=== PATIENT | male | born 1975 | race Caucasian/White ===

== ENCOUNTER 2019-10-28 12:27 | Observation (INO) | payer MEDICARE, BC, MEDICAID ==
[~2019-10-28] VITALS: Ht 180.3 cm; Wt 66.5 kg
[2019-10-28] MEDS ORDERED: TYLENOL EXTRA500 M2 PO (12:43)
[2019-10-28] MEDS ORDERED: FLONASE ALLERG9.9 ML NS (12:45)
[2019-10-28] MEDS ORDERED: MYCOPHENOLIC A360 MG PO (12:46)
[2019-10-28] MEDS ORDERED: ENVARSUS XR1 MG PO (12:47)
[2019-10-28] MEDS ORDERED: ZESTRIL5 M1 PO (12:47)
[2019-10-28] MEDS ORDERED: ENVARSUS XR0.75 MG PO (12:47)
[2019-10-28] MEDS ORDERED: SODIUM BIC650 MG/TAB PO (12:48)
[2019-10-28 13:07] LABS: HEMATOCRIT 30.4 % (42.0-52.0); HEMOGLOBIN 9.8 g/dL (13.5-18.0); MEAN CELL VOLUME 88 fl (78-100); MEAN CORPUSCULAR HEMOGLOBIN 28 pg (27-31); MEAN CORPUSCULAR HGB CONC 32 g/dL (33-37); MEAN PLATELET VOLUME 10.5 fl (7.4-10.4); PLATELET COUNT 224 K/mm3 (130-400); RED BLOOD COUNT 3.45 M/mm3 (4.20-5.60); RED CELL DISTRIBUTION WIDTH 13.9 % (11.5-14.5); WHITE BLOOD COUNT 4.3 K/mm3 (4.8-10.8)
[2019-10-28] MEDS ORDERED: CALCIUM PO (13:09)
[2019-10-28] MEDS ORDERED: SLOW MAG PO (13:09)
[2019-10-28 13:14] LABS: POTASSIUM 3.9 mmol/L (3.5-5.1)
[2019-10-28 13:15] LABS: CALCIUM 8.9 mg/dL (8.3-10.5)
[2019-10-28 13:18] LABS: LYMPHOCYTE 24 % (20-51); MONOCYTE 12 % (3-10); NEUTROPHILS 63 % (42-75)
[2019-10-28 14:31] LABS: URINE APPEARANCE CLEAR; URINE BILIRUBIN NEGATIVE (NEGATIVE); URINE BLOOD NEGATIVE (NEGATIVE); URINE COLOR YELLOW; URINE GLUCOSE NEGATIVE (NEGATIVE); URINE KETONE NEGATIVE (NEGATIVE); URINE LEUKOCYTE ESTERASE NEGATIVE (NEGATIVE); URINE MUCUS PRESENT (NOT PRESENT); URINE NITRATE NEGATIVE (NEGATIVE); URINE PROTEIN(semi-quant) 2+ mg/dL (NEGATIVE); URINE UROBILINOGEN NORMAL (NORMAL)
[2019-10-28 21:54] VITALS: BP 110/75
[2019-10-28 22:35] VITALS: BP 100/60
[2019-10-29 00:10] LABS: CALCIUM 7.7 mg/dL (8.3-10.5)
[2019-10-29 02:10] VITALS: BP 99/57
[2019-10-29 05:46] VITALS: BP 95/56
[2019-10-29 07:19] LABS: POTASSIUM 3.6 mmol/L (3.5-5.1)
[2019-10-29 07:21] LABS: CALCIUM 7.6 mg/dL (8.3-10.5)
[2019-10-29 07:28] LABS: HEMATOCRIT 24.1 % (42.0-52.0); MEAN CELL VOLUME 89 fl (78-100); MEAN CORPUSCULAR HEMOGLOBIN 29 pg (27-31); MEAN CORPUSCULAR HGB CONC 32 g/dL (33-37); PLATELET COUNT 156 K/mm3 (130-400); RED BLOOD COUNT 2.72 M/mm3 (4.20-5.60); RED CELL DISTRIBUTION WIDTH 13.7 % (11.5-14.5); WHITE BLOOD COUNT 2.6 K/mm3 (4.8-10.8)
[2019-10-29 07:36] LABS: HEMOGLOBIN 7.8 g/dL (13.5-18.0)
[2019-10-29 07:54] LABS: LYMPHOCYTE 31 % (20-51); MONOCYTE 14 % (3-10); NEUTROPHILS 55 % (42-75)
[2019-10-29 09:43] VITALS: BP 95/55
[2019-10-29 13:04] LABS: PROTHROMBIN TIME 9.9 SECONDS (9.0-12.0)
[2019-10-29 14:12] VITALS: BP 108/72
[2019-10-29 15:37] LABS: HEMATOCRIT 25.5 % (42.0-52.0); HEMOGLOBIN 8.2 g/dL (13.5-18.0); MEAN CELL VOLUME 89 fl (78-100); MEAN CORPUSCULAR HEMOGLOBIN 29 pg (27-31); MEAN CORPUSCULAR HGB CONC 32 g/dL (33-37); MEAN PLATELET VOLUME 11.9 fl (7.4-10.4); PLATELET COUNT 182 K/mm3 (130-400); RED BLOOD COUNT 2.86 M/mm3 (4.20-5.60); RED CELL DISTRIBUTION WIDTH 13.8 % (11.5-14.5)
[2019-10-29 15:38] LABS: POTASSIUM 3.7 mmol/L (3.5-5.1)
[2019-10-29 15:47] LABS: BAND 1 % (0-10); LYMPHOCYTE 30 % (20-51); MONOCYTE 15 % (3-10); NEUTROPHILS 50 % (42-75)
[2019-10-29 17:10] VITALS: BP 120/77
[2019-10-29 21:49] VITALS: BP 108/74
[2019-10-30 02:23] VITALS: BP 98/57
[2019-10-30 05:52] VITALS: BP 112/78
[2019-10-30 06:22] LABS: MEAN CELL VOLUME 88 fl (78-100); MEAN CORPUSCULAR HEMOGLOBIN 29 pg (27-31); MEAN CORPUSCULAR HGB CONC 33 g/dL (33-37); MEAN PLATELET VOLUME 11.1 fl (7.4-10.4); PLATELET COUNT 163 K/mm3 (130-400); RED BLOOD COUNT 2.57 M/mm3 (4.20-5.60); RED CELL DISTRIBUTION WIDTH 13.4 % (11.5-14.5)
[2019-10-30 06:43] LABS: POTASSIUM 3.3 mmol/L (3.5-5.1)
[2019-10-30 06:44] LABS: CALCIUM 7.5 mg/dL (8.3-10.5)
[2019-10-30 06:51] LABS: MAGNESIUM 1.91 mg/dL (1.60-2.60)
[2019-10-30 06:57] LABS: HEMATOCRIT 22.6 % (42.0-52.0); HEMOGLOBIN 7.5 g/dL (13.5-18.0); WHITE BLOOD COUNT 1.5 K/mm3 (4.8-10.8)
[2019-10-30 07:33] LABS: BAND 3 % (0-10); LYMPHOCYTE 50 % (20-51); MONOCYTE 11 % (3-10); NEUTROPHILS 31 % (42-75)
[2019-10-30 07:34] LABS: OVALOCYTES 1+; SCHISTOCYTES 1+; TEAR DROP CELLS 1+
[2019-10-30 09:47] VITALS: BP 109/70
[2019-10-30 14:11] VITALS: BP 133/90
[2019-10-30 17:04] VITALS: BP 128/78
== END 2019-10-30 15:05 | disposition short-term general hospital (02) ==
LOC: ED 12:27 → MED/SURG 21:47
PROVIDERS: Nurse Practitioner Primary Care; ADMIT Family Medicine
DX: N17.9 Acute kidney failure, unspecified (principal); N17.0 Acute kidney failure with tubular necrosis; E86.9 Volume depletion, unspecified; E87.2 Acidosis; J11.1 Influenza due to unidentified influenza virus with other respiratory manifestations; E83.42 Hypomagnesemia; R11.2 Nausea with vomiting, unspecified; R19.7 Diarrhea, unspecified; D72.819 Decreased white blood cell count, unspecified; Z94.0 Kidney transplant status
CPT/HCPCS: G0378; J3475; J7030; J7070

== ENCOUNTER 2019-10-30 15:05 | Inpatient (IN) | payer MEDICARE, BC, MEDICAID ==
[~2019-10-30] VITALS: Ht 180.3 cm; Wt 65.6 kg
[~2019-10-30 15:05] MED LIST: CALCIUM PO; ENVARSUS XR0.75 MG PO; ENVARSUS XR1 MG PO; FLONASE ALLERG9.9 ML NS; MYCOPHENOLIC A360 MG PO; SLOW MAG PO; SODIUM BIC650 MG/TAB PO; TYLENOL EXTRA500 M2 PO; ZESTRIL5 M1 PO
[2019-10-30 15:32] VITALS: BP 110/75
[2019-10-30 16:27] VITALS: BP 128/78
[2019-10-30 17:29] VITALS: BP 134/91
[2019-10-30 17:30] VITALS: BP 134/91
[2019-10-30 22:00] VITALS: BP 120/78
[2019-10-31 02:17] VITALS: BP 113/72
[2019-10-31 06:04] VITALS: BP 128/83
[2019-10-31 06:56] LABS: POTASSIUM 3.8 mmol/L (3.5-5.1)
[2019-10-31 06:57] LABS: CALCIUM 7.5 mg/dL (8.3-10.5)
[2019-10-31 07:04] LABS: MAGNESIUM 1.41 mg/dL (1.60-2.60)
[2019-10-31 07:41] LABS: MEAN CELL VOLUME 90 fl (78-100); MEAN CORPUSCULAR HEMOGLOBIN 28 pg (27-31); MEAN CORPUSCULAR HGB CONC 31 g/dL (33-37); PLATELET COUNT 167 K/mm3 (130-400); RED BLOOD COUNT 2.66 M/mm3 (4.20-5.60); RED CELL DISTRIBUTION WIDTH 13.4 % (11.5-14.5); WHITE BLOOD COUNT 2.2 K/mm3 (4.8-10.8)
[2019-10-31 08:12] LABS: HEMATOCRIT 23.8 % (42.0-52.0); HEMOGLOBIN 7.4 g/dL (13.5-18.0)
[2019-10-31 08:13] LABS: HYPOCHROMIA 1+; LYMPHOCYTE 38 % (20-51); MONOCYTE 16 % (3-10); NEUTROPHILS 42 % (42-75)
[2019-10-31 09:50] VITALS: BP 137/86
[2019-10-31 14:20] VITALS: BP 136/92
[2019-10-31 18:10] VITALS: BP 135/95
[2019-10-31 21:38] VITALS: BP 113/77
[2019-11-01 02:25] VITALS: BP 129/91
[2019-11-01 06:23] VITALS: BP 119/80
[2019-11-01 07:13] LABS: HEMATOCRIT 25.5 % (42.0-52.0); MEAN CELL VOLUME 92 fl (78-100); MEAN CORPUSCULAR HEMOGLOBIN 29 pg (27-31); MEAN CORPUSCULAR HGB CONC 31 g/dL (33-37); MEAN PLATELET VOLUME 10.6 fl (7.4-10.4); PLATELET COUNT 200 K/mm3 (130-400); RED BLOOD COUNT 2.78 M/mm3 (4.20-5.60); RED CELL DISTRIBUTION WIDTH 13.5 % (11.5-14.5); WHITE BLOOD COUNT 2.6 K/mm3 (4.8-10.8)
[2019-11-01 07:17] LABS: POTASSIUM 4.5 mmol/L (3.5-5.1)
[2019-11-01 07:18] LABS: CALCIUM 7.6 mg/dL (8.3-10.5)
[2019-11-01 08:06] LABS: HYPOCHROMIA 1+; LYMPHOCYTE 42 % (20-51); MONOCYTE 11 % (3-10); NEUTROPHILS 45 % (42-75)
[2019-11-01 09:42] VITALS: BP 132/92
[2019-11-01 12:53] VITALS: BP 130/92
== END 2019-11-01 13:56 | disposition home or self-care (01) | DRG 683 ==
LOC: MED/SURG 15:05
PROVIDERS: Physician Assistant; ADMIT Nurse Practitioner Family
DX: N17.0 Acute kidney failure with tubular necrosis (principal); E87.2 Acidosis; Z94.0 Kidney transplant status; N17.9 Acute kidney failure, unspecified; J10.1 Influenza due to other identified influenza virus with other respiratory manifestations; E83.42 Hypomagnesemia; D72.819 Decreased white blood cell count, unspecified
CPT/HCPCS: J1650; J3475; J7030

== ENCOUNTER → 2022-11-04 | Outpatient (CLI) | payer MEDICARE, MEDICAID ==
[2022-11-04 07:36] LABS: BASO # 0.03 K/mm3 (0.02-0.10); EOS # 0.13 K/mm3 (0.04-0.40); EOS % 2.7 % (0.0-4.0); HEMATOCRIT 32.4 % (42.0-52.0); HEMOGLOBIN 10.8 g/dL (13.5-18.0); LYMPH# 1.39 K/mm3 (1.50-4.00); MEAN CELL VOLUME 90 fl (78-100); MEAN CORPUSCULAR HEMOGLOBIN 30 pg (27-31); MEAN CORPUSCULAR HGB CONC 33 g/dL (33-37); MEAN PLATELET VOLUME 10.5 fl (7.4-10.4); MONO # 0.32 K/mm3 (0.20-0.80); PLATELET COUNT 271 K/mm3 (130-400); RED BLOOD COUNT 3.59 M/mm3 (4.20-5.60); RED CELL DISTRIBUTION WIDTH 13.3 % (11.5-14.5); WHITE BLOOD COUNT 4.8 K/mm3 (4.8-10.8)
[2022-11-04 07:43] LABS: POTASSIUM 4.5 mmol/L (3.5-5.1)
[2022-11-04 07:44] LABS: ALBUMIN 4.8 g/dL (3.5-5.0)
[2022-11-04 07:45] LABS: CALCIUM 9.2 mg/dL (8.3-10.5)
[2022-11-04 07:46] LABS: TOTAL PROTEIN 7.8 g/dL (6.4-8.3)
[2022-11-04 07:48] LABS: TOTAL BILIRUBIN 0.4 mg/dL (0.2-1.2)
[2022-11-04 07:53] LABS: MAGNESIUM 1.22 mg/dL (1.60-2.60)
[2022-11-04 08:02] LABS: URINE COLOR LT YELLOW
[2022-11-04 08:03] LABS: URINE APPEARANCE CLEAR; URINE BILIRUBIN NEGATIVE (NEGATIVE); URINE BLOOD TRACE (NEGATIVE); URINE GLUCOSE NEGATIVE (NEGATIVE); URINE KETONE NEGATIVE (NEGATIVE); URINE LEUKOCYTE ESTERASE NEGATIVE (NEGATIVE); URINE NITRATE NEGATIVE (NEGATIVE); URINE PROTEIN(semi-quant) 2+ (NEGATIVE); URINE UROBILINOGEN NORMAL (NORMAL); URINE WBC 0-1 /hpf (0-3)
[2022-11-05 01:23] LABS: TACROLIMUS (PROGRAF) 4.9 ng/mL (5.0-15.0)
[2022-11-08 13:02] LABS: BK VIRUS, DNA LOG, PLASMA Not Detected (()); BK VIRUS, QUANT PCR, PLASMA Not Detected (())
== END ==
LOC: LAB 07:16
PROVIDERS: Internal Medicine Nephrology
DX: Z94.0 Kidney transplant status (principal); Z79.899 Other long term (current) drug therapy

== ENCOUNTER → 2022-12-27 | Day surgery (SDC) | payer MEDICARE, MEDICAID | END | disposition home or self-care (01) | LOC: MSO 12-20 12:15 | DX: Z12.11 Encounter for screening for malignant neoplasm of colon (principal); T86.12 Kidney transplant failure; Z86.16 Personal history of COVID-19 | CPT/HCPCS: G0105; 00812; J2704; J7120 ==

== ENCOUNTER → 2022-12-31 | Outpatient (CLI) | payer MEDICARE, MEDICAID | LOC: VAS 07:41 → RAD 07:41 | DX: Z01.818 Encounter for other preprocedural examination (principal) ==

== ENCOUNTER → 2023-05-26 | Outpatient (CLI) | payer MEDICARE, MEDICAID ==
[2023-05-26 07:40] LABS: BASO # 0.04 K/mm3 (0.02-0.10); EOS # 0.14 K/mm3 (0.04-0.40); EOS % 2.6 % (0.0-4.0); HEMATOCRIT 29.6 % (42.0-52.0); HEMOGLOBIN 9.8 g/dL (13.5-18.0); LYMPH# 1.47 K/mm3 (1.50-4.00); MEAN CELL VOLUME 91 fl (78-100); MEAN CORPUSCULAR HEMOGLOBIN 30 pg (27-31); MEAN CORPUSCULAR HGB CONC 33 g/dL (33-37); MEAN PLATELET VOLUME 10.1 fl (7.4-10.4); MONO # 0.42 K/mm3 (0.20-0.80); NEU # 3.24 K/mm3 (1.40-6.50); PLATELET COUNT 306 K/mm3 (130-400); RED BLOOD COUNT 3.27 M/mm3 (4.20-5.60); RED CELL DISTRIBUTION WIDTH 12.7 % (11.5-14.5); WHITE BLOOD COUNT 5.4 K/mm3 (4.8-10.8)
[2023-05-26 07:48] LABS: ALBUMIN 4.2 g/dL (3.5-5.0)
[2023-05-26 07:49] LABS: CALCIUM 7.8 mg/dL (8.3-10.5)
[2023-05-26 07:50] LABS: TOTAL PROTEIN 6.9 g/dL (6.4-8.3)
[2023-05-26 07:52] LABS: TOTAL BILIRUBIN 0.3 mg/dL (0.2-1.2)
[2023-05-26 07:57] LABS: MAGNESIUM 1.24 mg/dL (1.60-2.60)
[2023-05-26 08:04] LABS: URINE APPEARANCE CLEAR; URINE BILIRUBIN NEGATIVE (NEGATIVE); URINE BLOOD NEGATIVE (NEGATIVE); URINE COLOR YELLOW; URINE GLUCOSE NEGATIVE (NEGATIVE); URINE KETONE NEGATIVE (NEGATIVE); URINE LEUKOCYTE ESTERASE TRACE (NEGATIVE); URINE MUCUS PRESENT (NOT PRESENT); URINE NITRATE NEGATIVE (NEGATIVE); URINE PROTEIN(semi-quant) 3+ (NEGATIVE); URINE UROBILINOGEN NORMAL (NORMAL); URINE WBC 0-1 /hpf (0-3)
[2023-05-27 00:29] LABS: TACROLIMUS (PROGRAF) 5.4 ng/mL (5.0-15.0)
[2023-05-30 12:08] LABS: BK VIRUS, QUANT PCR, PLASMA Negative (Negative)
== END ==
LOC: LAB 07:13
PROVIDERS: Internal Medicine Nephrology
DX: Z12.5 Encounter for screening for malignant neoplasm of prostate (principal); D63.1 Anemia in chronic kidney disease; I12.9 Hypertensive chronic kidney disease with stage 1 through stage 4 chronic kidney disease, or unspecified chronic kidney disease; N18.4 Chronic kidney disease, stage 4 (severe); Z94.9 Transplanted organ and tissue status, unspecified; Z79.899 Other long term (current) drug therapy

== ENCOUNTER → 2023-09-19 | Outpatient (CLI) | payer MEDICARE, MEDICAID ==
[2023-09-19 07:18] LABS: URINE WBC 0 /hpf (0-3)
[2023-09-19 07:30] LABS: BASO # 0.03 K/mm3 (0.02-0.10); EOS # 0.11 K/mm3 (0.04-0.40); EOS % 2.8 % (0.0-4.0); HEMATOCRIT 29.6 % (42.0-52.0); HEMOGLOBIN 10.2 g/dL (13.5-18.0); LYMPH# 1.41 K/mm3 (1.50-4.00); MEAN CELL VOLUME 90 fl (78-100); MEAN CORPUSCULAR HEMOGLOBIN 31 pg (27-31); MEAN CORPUSCULAR HGB CONC 35 g/dL (33-37); MEAN PLATELET VOLUME 10.6 fl (7.4-10.4); MONO # 0.31 K/mm3 (0.20-0.80); NEU # 1.99 K/mm3 (1.40-6.50); PLATELET COUNT 276 K/mm3 (130-400); RED BLOOD COUNT 3.29 M/mm3 (4.20-5.60); RED CELL DISTRIBUTION WIDTH 12.8 % (11.5-14.5); WHITE BLOOD COUNT 3.9 K/mm3 (4.8-10.8)
[2023-09-19 07:35] LABS: ALBUMIN 4.3 g/dL (3.5-5.0)
[2023-09-19 07:37] LABS: TOTAL PROTEIN 7.2 g/dL (6.4-8.3)
[2023-09-19 07:39] LABS: TOTAL BILIRUBIN 0.3 mg/dL (0.2-1.2)
[2023-09-19 07:44] LABS: MAGNESIUM 1.29 mg/dL (1.60-2.60)
[2023-09-19 07:59] LABS: URINE APPEARANCE CLEAR (CLEAR); URINE COLOR YELLOW (YELLOW); URINE GLUCOSE NEGATIVE (NEGATIVE); URINE PROTEIN(semi-quant) 3+ (NEGATIVE)
[2023-09-19 08:00] LABS: URINE BILIRUBIN NEGATIVE (NEGATIVE); URINE BLOOD NEGATIVE (NEGATIVE); URINE KETONE NEGATIVE (NEGATIVE); URINE LEUKOCYTE ESTERASE NEGATIVE (NEGATIVE); URINE NITRATE NEGATIVE (NEGATIVE)
== END ==
LOC: LAB 07:00
PROVIDERS: Family Medicine
DX: Z94.0 Kidney transplant status (principal); D84.9 Immunodeficiency, unspecified; Z79.899 Other long term (current) drug therapy

== ENCOUNTER → 2023-12-05 | Outpatient (CLI) | payer MEDICARE, MEDICAID ==
[2023-12-05 07:02] LABS: BASO # 0.03 K/mm3 (0.02-0.10); EOS # 0.06 K/mm3 (0.04-0.40); EOS % 1.7 % (0.0-4.0); HEMATOCRIT 30.5 % (42.0-52.0); HEMOGLOBIN 10.2 g/dL (13.5-18.0); LYMPH# 1.35 K/mm3 (1.50-4.00); MEAN CELL VOLUME 90 fl (78-100); MEAN CORPUSCULAR HEMOGLOBIN 30 pg (27-31); MEAN CORPUSCULAR HGB CONC 33 g/dL (33-37); MEAN PLATELET VOLUME 10.1 fl (7.4-10.4); MONO # 0.31 K/mm3 (0.20-0.80); NEU # 1.87 K/mm3 (1.40-6.50); PLATELET COUNT 291 K/mm3 (130-400); RED BLOOD COUNT 3.38 M/mm3 (4.20-5.60); WHITE BLOOD COUNT 3.6 K/mm3 (4.8-10.8)
[2023-12-05 07:10] LABS: ALBUMIN 4.4 g/dL (3.5-5.0)
[2023-12-05 07:11] LABS: CALCIUM 8.8 mg/dL (8.3-10.5)
[2023-12-05 07:12] LABS: URINE APPEARANCE CLEAR (CLEAR); URINE BILIRUBIN NEGATIVE (NEGATIVE); URINE BLOOD 1+ (NEGATIVE); URINE COLOR LIGHT YELLOW (YELLOW); URINE GLUCOSE NEGATIVE (NEGATIVE); URINE KETONE NEGATIVE (NEGATIVE); URINE LEUKOCYTE ESTERASE NEGATIVE (NEGATIVE); URINE NITRATE NEGATIVE (NEGATIVE); URINE PROTEIN(semi-quant) 3+ (NEGATIVE)
[2023-12-05 07:13] LABS: TOTAL PROTEIN 7.3 g/dL (6.4-8.3)
[2023-12-05 07:14] LABS: TOTAL BILIRUBIN 0.5 mg/dL (0.2-1.2)
[2023-12-05 07:19] LABS: URINE WBC 0-1 /hpf (0-3)
[2023-12-05 08:55] LABS: MAGNESIUM 1.18 mg/dL (1.60-2.60)
[2023-12-05 19:52] LABS: TACROLIMUS (PROGRAF) 6.9 ng/mL (5.0-15.0)
[2023-12-08 13:13] LABS: BK VIRUS, QUANT PCR, PLASMA Negative (Negative)
== END ==
LOC: LAB 06:45
PROVIDERS: Internal Medicine Nephrology
DX: Z94.0 Kidney transplant status (principal); Z79.899 Other long term (current) drug therapy

== ENCOUNTER → 2024-02-10 | Outpatient (CLI) | payer MEDICARE, MEDICAID | LOC: LAB 11:36 | DX: Z01.89 Encounter for other specified special examinations (principal) ==

== ENCOUNTER → 2024-03-16 | Outpatient (CLI) | payer MEDICARE, MEDICAID | LOC: LAB 07:36 | DX: Z01.89 Encounter for other specified special examinations (principal) ==